=== PATIENT | male | born 1970 | race African-American/Black ===

== ENCOUNTER 2017-09-25 01:59 | Emergency (ER) | payer MEDICAID ==
[~2017-09-25] VITALS: Ht 177.8 cm; Wt 78.0 kg
[2017-09-25] MEDS ORDERED: HYDROCODONE/ACETAMINOPHEN 5/325MG TABLET PO ONE (05:00)
[2017-09-25 06:27] VITALS: BP 168/105
[2017-09-25] MEDS ORDERED: IBUPROFEN 800MG TABLET PO ONE (06:30)
[2017-09-25 06:31] LABS: CLARITY URINE CLEAR (CLEAR); COLOR URINE YELLOW (YELLOW); KETONES URINE 1+ (NEGATIVE); LEUKOCYTE ESTERASE URINE 1+ (NEGATIVE); NITRITE URINE NEGATIVE (NEGATIVE); OCCULT BLOOD URINE 1+ (NEGATIVE); PROTEIN URINE 2+ (NEGATIVE); UROBILINOGEN URINE 0.2 E.U./dL (0.2-1.0)
== END 2017-09-25 06:39 | disposition home or self-care (01) ==
LOC: ER 01:59
DX: S22.31XA Fracture of one rib, right side, initial encounter for closed fracture (principal); V49.88XA Car occupant (driver) (passenger) injured in other specified transport accidents, initial encounter; Y93.89 Activity, other specified; Y92.488 Other paved roadways as the place of occurrence of the external cause; Y99.8 Other external cause status; Z79.899 Other long term (current) drug therapy
CPT/HCPCS: 71100; 81003; 87077; 87086; 87186; 99285